=== PATIENT | male | born 1945 | race African-American/Black ===

== ENCOUNTER → 2017-08-22 | Outpatient (CLI) | payer MEDICARE, OTHER | END | disposition home or self-care (01) | LOC: C/S 16:13 | DX: J40 Bronchitis, not specified as acute or chronic (principal) | CPT/HCPCS: 71250 ==

== ENCOUNTER 2017-09-19 11:59 | Inpatient (IN) | payer MEDICARE, OTHER ==
[2017-09-19] MEDS: IPRATROPIUM (NEB) 0.5 MG/2.5 ML AMP HHN (17:13)
[2017-09-19] MEDS: ALBUTEROL 0.083% (NEB) 2.5 MG/3 ML AMP HHN (17:13)
[2017-09-19 17:30] LABS: ADD MAN DIFF? NO
[2017-09-19 17:32] LABS: ADD UMIC NO; UR ASCORBIC ACID NEGATIVE (NEGATIVE); UR BILIRUBIN (Dip) NEGATIVE (NEGATIVE); UR BLOOD (Dip) NEGATIVE (NEGATIVE); UR CLARITY CLEAR (CLEAR); UR COLOR YELLOW (YELLOW); UR GLUCOSE (Dip) NEGATIVE (NEGATIVE); UR KETONES (Dip) TRACE mg/dL (NEGATIVE); UR LEUKOCYTE ESTERASE (Dip) NEGATIVE Leu/ul (NEGATIVE); UR NITRITE (Dip) NEGATIVE (NEGATIVE); UR SPECIFIC GRAVITY (Dip) 1.012 (1.003-1.030); UR TOTAL PROTEIN (Dip) NEGATIVE (NEGATIVE); UR UROBILINOGEN (Dip) NEGATIVE (NEGATIVE)
[2017-09-19 17:34] LABS: WHITE BLOOD COUNT 14.2 10^3/ul (4.8-10.8)
[2017-09-19 17:34] LABS: BASOPHIL # 0.1 10^3/ul (0.0-0.1); BASOPHILS % 0.4 % (0.0-2.0); EOSINOPHILS % 0.1 % (0.0-7.0); HEMATOCRIT 38.5 % (42.0-52.0); HEMOGLOBIN 13.1 g/dl (14.0-18.0); LYMPHOCYTES # 0.9 10^3/ul (0.8-2.9); LYMPHOCYTES % 6.6 % (15.0-51.0); MEAN CORPUSCULAR HEMOGLOBIN 30.5 pg (29.0-33.0); MEAN CORPUSCULAR VOLUME 89.7 fl (82.0-101.0); MEAN PLATELET VOLUME 8.6 fl (7.4-10.4); MONOCYTE # 0.8 10^3/ul (0.3-0.9); MONOCYTES % 5.4 % (0.0-11.0); NEUTROPHILS % 84.9 % (39.0-77.0); NUCLEATED RED BLOOD CELLS # 0.1 10^3/ul (0.0-0.0); NUCLEATED RED BLOOD CELLS% 0.6 /100WBC (0.0-0.0); PLATELET COUNT 413 10^3/UL (140-415); RED BLOOD COUNT 4.29 10^6/ul (4.70-6.10)
[2017-09-19 17:49] LABS: INR 1.08; PROTIME 14.1 Sec (11.9-14.9); PT RATIO 1.1
[2017-09-19 17:50] LABS: PARTIAL THROMBOPLASTIN TIME 30.4 Sec (25.0-35.0)
[2017-09-19 17:52] LABS: ALANINE AMINOTRANSFERASE 49 IU/L (13-69); ALBUMIN 3.9 g/dl (3.3-4.9); ALKALINE PHOSPHATASE 129 IU/L (42-121); ANION GAP 14 (8-16); ASPARTATE AMINO TRANSFERASE 54 IU/L (15-46); BILIRUBIN,INDIRECT 0.6 mg/dl (0-1.1); BILIRUBIN,TOTAL 0.6 mg/dl (0.2-1.3); BLOOD UREA NITROGEN 13 mg/dl (7-20); CARBON DIOXIDE 24 mmol/L (21-31); CHLORIDE 106 mmol/L (97-110); CREATININE 1.07 mg/dl (0.61-1.24); GLUCOSE 118 mg/dl (70-220); POTASSIUM 4.8 mmol/L (3.5-5.1); SODIUM 139 mmol/L (135-144); TOTAL PROTEIN 7.8 g/dl (6.1-8.1)
[2017-09-19 18:15] LABS: TROPONIN-I < 0.012 ng/ml (0.00-0.12)
[2017-09-19] MEDS: morphine 4 MG/ML VIAL IV (20:00)
[2017-09-19] MEDS ORDERED: ACETAMINOPHEN 325 MG TAB PO ×2 (20:00→21:30)
[2017-09-19] MEDS ORDERED: ONDANSETRON 4 MG INJ IV (20:00)
[2017-09-19] MEDS: LEVOFLOXACIN 750MG/D5W (PMX) 150 ML IVPB (20:01)
[2017-09-19 20:28] LABS: LACTIC ACID 1.9 mmol/L (0.5-2.0)
[2017-09-19] MEDS ORDERED: METHYLPREDNISOLONE 125 MG INJ IV (21:30)
[2017-09-19 22:32] LABS: C-REACTIVE PROTEIN 7.9 mg/dl (0.0-0.9)
[2017-09-19 22:33] LABS: LACTIC ACID 2.9 mmol/L (0.5-2.0)
[2017-09-20] MEDS: SOD CHLORIDE 0.9% 500 ML IV (00:42)
[2017-09-20] MEDS: METHYLPREDNISOLONE 125 MG INJ IV (00:42)
[2017-09-20] MEDS: FLUTICASONE 0.05% 16 GM NAS SPRAY NASAL ×3 (00:42→20:49)
[2017-09-20] MEDS: ALBUTEROL/IPRATROPIUM (NEB) 3 ML AMP HHN ×6 (00:54→20:59)
[2017-09-20] MEDS: morphine 2 MG INJ IV ×2 (01:10→10:02)
[2017-09-20 02:44] LABS: LACTIC ACID 1.3 mmol/L (0.5-2.0)
[2017-09-20] MEDS: PANTOPRAZOLE (EC) 40 MG TAB PO (06:09)
[2017-09-20] MEDS ORDERED: LEVOFLOXACIN 750MG/D5W (PMX) 150 ML IVPB (07:00)
[2017-09-20] MEDS: ASPIRIN (EC) 81 MG TAB PO (09:00)
[2017-09-20 09:02] LABS: ADD MAN DIFF? NO
[2017-09-20 09:08] LABS: WHITE BLOOD COUNT 10.2 10^3/ul (4.8-10.8)
[2017-09-20 09:08] LABS: ABNORMAL IP MESSAGE 1; BASOPHILS % 0.2 % (0.0-2.0); HEMATOCRIT 32.6 % (42.0-52.0); LYMPHOCYTES # 0.5 10^3/ul (0.8-2.9); LYMPHOCYTES % 5.2 % (15.0-51.0); MEAN CORPUSCULAR HEMOGLOBIN 30.6 pg (29.0-33.0); MEAN CORPUSCULAR HGB CONC 33.7 g/dl (32.0-37.0); MEAN CORPUSCULAR VOLUME 90.8 fl (82.0-101.0); MEAN PLATELET VOLUME 8.9 fl (7.4-10.4); MONOCYTE # 0.1 10^3/ul (0.3-0.9); MONOCYTES % 1.3 % (0.0-11.0); NEUTROPHIL # 9.2 10^3/ul (1.6-7.5); NEUTROPHILS % 90.4 % (39.0-77.0); NUCLEATED RED BLOOD CELLS% 0.2 /100WBC (0.0-0.0); PLATELET COUNT 408 10^3/UL (140-415); POSITIVE DIFF @See below; RED BLOOD COUNT 3.59 10^6/ul (4.70-6.10); RED CELL DISTRIBUTION WIDTH 14.8 % (11.5-14.5)
[2017-09-20 09:21] LABS: HEMOGLOBIN A1C 5.8 % (0-5.9)
[2017-09-20 09:23] LABS: LACTIC ACID 1.7 mmol/L (0.5-2.0)
[2017-09-20 09:34] LABS: ALANINE AMINOTRANSFERASE 45 IU/L (13-69); ALBUMIN 2.8 g/dl (3.3-4.9); ALBUMIN/GLOBULIN RATIO 0.82; ALKALINE PHOSPHATASE 86 IU/L (42-121); ANION GAP 13 (8-16); ASPARTATE AMINO TRANSFERASE 39 IU/L (15-46); BILIRUBIN,INDIRECT 0.3 mg/dl (0-1.1); BILIRUBIN,TOTAL 0.3 mg/dl (0.2-1.3); BLOOD UREA NITROGEN 13 mg/dl (7-20); CALCIUM 8.6 mg/dl (8.4-10.2); CARBON DIOXIDE 24 mmol/L (21-31); CHLORIDE 107 mmol/L (97-110); CHOLESTEROL 104 mg/dl (100-200); CREATININE 0.88 mg/dl (0.61-1.24); GLUCOSE 125 mg/dl (70-220); HDL CHOLESTEROL 52 mg/dl (31-75); LDL CHOLESTEROL,CALCULATED 40 mg/dl; MAGNESIUM 2.2 mg/dl (1.7-2.5); POTASSIUM 5.6 mmol/L (3.5-5.1); SODIUM 138 mmol/L (135-144); TOTAL PROTEIN 6.2 g/dl (6.1-8.1); TRIGLYCERIDES 58 mg/dl (0-149)
[2017-09-20] MEDS: predniSONE 20 MG TAB PO (09:46)
[2017-09-20] MEDS: CLOPIDOGREL 75 MG TAB PO (09:46)
[2017-09-20] MEDS: LORAZEPAM 2 MG INJ IV (09:46)
[2017-09-20] MEDS: RANOLAZINE (SR) 500 MG TAB PO ×2 (09:46→20:50)
[2017-09-20] MEDS: FINASTERIDE 5 MG TAB PO (09:46)
[2017-09-20] MEDS: ISOSORBIDE MONONITRATE(SR)60 MG TAB PO (09:47)
[2017-09-20] MEDS: BACLOFEN 10 MG TAB PO ×2 (09:47→20:49)
[2017-09-20] MEDS: TIOTROPIUM 18 MCG CAPSULE INHA DEV INH (09:48)
[2017-09-20] MEDS: HYDROCODONE/APAP (10/325) TAB PO ×3 (10:00→22:00)
[2017-09-20 10:04] LABS: THYROID STIMULATING HORMONE 0.439 MIU/L (0.465-4.680)
[2017-09-20] MEDS: SALMETEROL/FLUTICASONE 250/50 INHA INH ×2 (12:01→20:49)
[2017-09-20] MEDS: METHYLPREDNISOLONE 40 MG INJ IV ×2 (12:01→17:23)
[2017-09-20] MEDS: TAMSULOSIN (SR) 0.4 MG CAP PO (12:02)
[2017-09-20] MEDS: SENNA/DOCUSATE NA (8.6MG/50MG) TAB PO ×2 (12:02→20:50)
[2017-09-20] MEDS: POLYETHYLENE GLYCOL 17 GM PACKET PO (12:02)
[2017-09-20] MEDS: NA POLYST SULFON 15 GM/60 ML BTL PO (12:04)
[2017-09-20] MEDS: OXYCODONE/ACETAMINOPHEN (5/325) TAB PO ×2 (13:55→21:08)
[2017-09-20] MEDS: morphine LIQ (10 MG/5 ML) CUP PO ×2 (17:22→21:56)
[2017-09-20] MEDS: SOD CHLORIDE 0.9% 100 ML ×2 (18:01→18:02)
[2017-09-20] MEDS: IOHEXOL 100 ML (18:01)
[2017-09-20] MEDS: IOHEXOL 350MG/ML 50 ML BTL (18:02)
[2017-09-20] MEDS: GABAPENTIN 100 MG CAP PO (20:49)
[2017-09-20] MEDS: ATORVASTATIN 40 MG TAB PO (20:49)
[2017-09-20] MEDS: LEVOFLOXACIN 750MG/D5W (PMX) 150 ML IVPB (20:49)
[2017-09-20] MEDS: ENOXAPARIN 100 MG/ML SYG SC (20:57)
[2017-09-20] MEDS ORDERED: TAMSULOSIN (SR) 0.4 MG CAP PO (21:00)
[2017-09-20] MEDS ORDERED: HEPARIN 1000 UNITS/ML 10 ML INJ IV ×2 (22:30)
[2017-09-20 22:46] LABS: ADD MAN DIFF? NO
[2017-09-20 22:49] LABS: WHITE BLOOD COUNT 10.8 10^3/ul (4.8-10.8)
[2017-09-20 22:49] LABS: BASOPHILS % 0.2 % (0.0-2.0); HEMOGLOBIN 11.2 g/dl (14.0-18.0); LYMPHOCYTES # 0.7 10^3/ul (0.8-2.9); LYMPHOCYTES % 6.8 % (15.0-51.0); MEAN CORPUSCULAR HEMOGLOBIN 30.6 pg (29.0-33.0); MEAN CORPUSCULAR HGB CONC 33.9 g/dl (32.0-37.0); MEAN CORPUSCULAR VOLUME 90.2 fl (82.0-101.0); MEAN PLATELET VOLUME 8.7 fl (7.4-10.4); MONOCYTE # 0.3 10^3/ul (0.3-0.9); MONOCYTES % 3.1 % (0.0-11.0); NEUTROPHIL # 9.5 10^3/ul (1.6-7.5); NEUTROPHILS % 87.7 % (39.0-77.0); NUCLEATED RED BLOOD CELLS% 0.4 /100WBC (0.0-0.0); PLATELET COUNT 410 10^3/UL (140-415); RED BLOOD COUNT 3.66 10^6/ul (4.70-6.10)
[2017-09-20 23:06] LABS: INR 1.11; PROTIME 14.5 Sec (11.9-14.9); PT RATIO 1.1
[2017-09-20 23:07] LABS: PARTIAL THROMBOPLASTIN TIME 41.4 Sec (25.0-35.0)
[2017-09-21] MEDS: METHYLPREDNISOLONE 40 MG INJ IV ×4 (01:06→17:32)
[2017-09-21] MEDS: OXYCODONE/ACETAMINOPHEN (5/325) TAB PO ×3 (02:06→13:06)
[2017-09-21] MEDS: HEPARIN 1000 UNITS/ML 10 ML INJ IV (02:21)
[2017-09-21] MEDS: HEPARIN 25000 UNITS/250 ML 250 ML IV ×3 (02:25→11:18)
[2017-09-21] MEDS: ALBUTEROL/IPRATROPIUM (NEB) 3 ML AMP HHN ×6 (02:32→20:15)
[2017-09-21] MEDS: NACL 0.9% 3 ML SYG IV (02:47)
[2017-09-21] MEDS: HYDROCODONE/APAP (10/325) TAB PO ×4 (03:56→22:58)
[2017-09-21] MEDS: PANTOPRAZOLE (EC) 40 MG TAB PO (06:10)
[2017-09-21] MEDS: morphine LIQ (10 MG/5 ML) CUP PO ×2 (08:01→15:38)
[2017-09-21] MEDS: FLUTICASONE 0.05% 16 GM NAS SPRAY NASAL ×2 (08:27→21:08)
[2017-09-21] MEDS: SALMETEROL/FLUTICASONE 250/50 INHA INH ×2 (08:27→21:14)
[2017-09-21] MEDS: SENNA/DOCUSATE NA (8.6MG/50MG) TAB PO ×2 (08:28→21:13)
[2017-09-21] MEDS: POLYETHYLENE GLYCOL 17 GM PACKET PO (08:28)
[2017-09-21] MEDS: BACLOFEN 10 MG TAB PO ×2 (08:28→21:09)
[2017-09-21] MEDS: TIOTROPIUM 18 MCG CAPSULE INHA DEV INH (08:28)
[2017-09-21] MEDS: CLOPIDOGREL 75 MG TAB PO (08:29)
[2017-09-21] MEDS: RANOLAZINE (SR) 500 MG TAB PO ×2 (08:29→21:13)
[2017-09-21] MEDS: ISOSORBIDE MONONITRATE(SR)60 MG TAB PO (08:29)
[2017-09-21] MEDS: FINASTERIDE 5 MG TAB PO (08:29)
[2017-09-21 08:45] LABS: ADD MAN DIFF? NO
[2017-09-21 08:49] LABS: BASOPHILS % 0.2 % (0.0-2.0); HEMATOCRIT 33.3 % (42.0-52.0); HEMOGLOBIN 11.5 g/dl (14.0-18.0); LYMPHOCYTES # 1.2 10^3/ul (0.8-2.9); LYMPHOCYTES % 7.1 % (15.0-51.0); MEAN CORPUSCULAR HEMOGLOBIN 31.3 pg (29.0-33.0); MEAN CORPUSCULAR HGB CONC 34.5 g/dl (32.0-37.0); MEAN CORPUSCULAR VOLUME 90.7 fl (82.0-101.0); MEAN PLATELET VOLUME 8.5 fl (7.4-10.4); MONOCYTE # 0.9 10^3/ul (0.3-0.9); MONOCYTES % 5.2 % (0.0-11.0); NEUTROPHIL # 14.3 10^3/ul (1.6-7.5); NUCLEATED RED BLOOD CELLS # 0.1 10^3/ul (0.0-0.0); NUCLEATED RED BLOOD CELLS% 0.4 /100WBC (0.0-0.0); PLATELET COUNT 435 10^3/UL (140-415); RED BLOOD COUNT 3.67 10^6/ul (4.70-6.10); RED CELL DISTRIBUTION WIDTH 14.8 % (11.5-14.5)
[2017-09-21 08:49] LABS: WHITE BLOOD COUNT 16.8 10^3/ul (4.8-10.8)
[2017-09-21] MEDS ORDERED: TAMSULOSIN (SR) 0.4 MG CAP PO (09:00)
[2017-09-21 09:09] LABS: ALBUMIN 3.2 g/dl (3.3-4.9); ANION GAP 12 (8-16); BLOOD UREA NITROGEN 12 mg/dl (7-20); CALCIUM 9.2 mg/dl (8.4-10.2); CARBON DIOXIDE 26 mmol/L (21-31); CHLORIDE 106 mmol/L (97-110); CREATININE 0.91 mg/dl (0.61-1.24); GLUCOSE 118 mg/dl (70-220); MAGNESIUM 2.2 mg/dl (1.7-2.5); PHOSPHORUS 3.3 mg/dl (2.5-4.9); POTASSIUM 4.1 mmol/L (3.5-5.1); SODIUM 140 mmol/L (135-144)
[2017-09-21 10:07] LABS: PARTIAL THROMBOPLASTIN TIME 148.1 Sec (25.0-35.0)
[2017-09-21] MEDS ORDERED: VANCOMYCIN 750 MG in DEXTROSE 5% 150 ML IVPB (13:30)
[2017-09-21] MEDS ORDERED: VANCOMYCIN IV PER PHARMACY XX (13:30)
[2017-09-21] MEDS: PIPER-TAZO 3.375 GM IV (PMX) 100 ML IVPB ×2 (14:23→21:14)
[2017-09-21] MEDS: VANCOMYCIN 1.5 GM in SOD CHLORIDE 0.9% 250 ML IVPB (15:32)
[2017-09-21 16:12] LABS: PARTIAL THROMBOPLASTIN TIME 71.7 Sec (25.0-35.0)
[2017-09-21] MEDS: LEVOFLOXACIN 750MG/D5W (PMX) 150 ML IVPB (19:57)
[2017-09-21] MEDS: ATORVASTATIN 40 MG TAB PO (21:09)
[2017-09-21] MEDS: GABAPENTIN 100 MG CAP PO (21:09)
[2017-09-21] MEDS: TAMSULOSIN (SR) 0.4 MG CAP PO (21:13)
[2017-09-21 21:32] LABS: PARTIAL THROMBOPLASTIN TIME 66.4 Sec (25.0-35.0)
[2017-09-22] MEDS: METHYLPREDNISOLONE 40 MG INJ IV ×2 (00:08→06:22)
[2017-09-22] MEDS: ZOLPIDEM 5 MG TAB PO ×2 (00:11→22:28)
[2017-09-22] MEDS: ALBUTEROL/IPRATROPIUM (NEB) 3 ML AMP HHN ×6 (01:51→20:15)
[2017-09-22] MEDS: HEPARIN 25000 UNITS/250 ML 250 ML IV (02:28)
[2017-09-22] MEDS: HYDROCODONE/APAP (10/325) TAB PO ×4 (04:00→22:00)
[2017-09-22] MEDS: OXYCODONE/ACETAMINOPHEN (5/325) TAB PO ×3 (05:01→19:35)
[2017-09-22] MEDS: VANCOMYCIN 750 MG in DEXTROSE 5% 150 ML IVPB ×2 (05:03→16:24)
[2017-09-22 05:37] LABS: ADD MAN DIFF? NO
[2017-09-22 05:46] LABS: WHITE BLOOD COUNT 15.1 10^3/ul (4.8-10.8)
[2017-09-22 05:46] LABS: BASOPHILS % 0.2 % (0.0-2.0); HEMATOCRIT 30.9 % (42.0-52.0); HEMOGLOBIN 10.5 g/dl (14.0-18.0); LYMPHOCYTES # 0.8 10^3/ul (0.8-2.9); LYMPHOCYTES % 5.6 % (15.0-51.0); MEAN CORPUSCULAR HEMOGLOBIN 30.9 pg (29.0-33.0); MEAN CORPUSCULAR VOLUME 90.9 fl (82.0-101.0); MEAN PLATELET VOLUME 8.8 fl (7.4-10.4); MONOCYTE # 0.5 10^3/ul (0.3-0.9); MONOCYTES % 3.2 % (0.0-11.0); NEUTROPHIL # 13.4 10^3/ul (1.6-7.5); NEUTROPHILS % 88.2 % (39.0-77.0); NUCLEATED RED BLOOD CELLS% 0.3 /100WBC (0.0-0.0); PLATELET COUNT 443 10^3/UL (140-415); RED CELL DISTRIBUTION WIDTH 14.9 % (11.5-14.5)
[2017-09-22 06:12] LABS: ALBUMIN 2.8 g/dl (3.3-4.9); ANION GAP 10 (8-16); BLOOD UREA NITROGEN 14 mg/dl (7-20); CARBON DIOXIDE 27 mmol/L (21-31); CHLORIDE 106 mmol/L (97-110); CREATININE 0.88 mg/dl (0.61-1.24); GLUCOSE 123 mg/dl (70-220); MAGNESIUM 2.1 mg/dl (1.7-2.5); PHOSPHORUS 3.2 mg/dl (2.5-4.9); POTASSIUM 4.6 mmol/L (3.5-5.1); SODIUM 138 mmol/L (135-144)
[2017-09-22] MEDS: PIPER-TAZO 3.375 GM IV (PMX) 100 ML IVPB ×3 (06:22→21:14)
[2017-09-22] MEDS: PANTOPRAZOLE (EC) 40 MG TAB PO (06:24)
[2017-09-22 06:50] LABS: PARTIAL THROMBOPLASTIN TIME 80.4 Sec (25.0-35.0)
[2017-09-22] MEDS: SALMETEROL/FLUTICASONE 250/50 INHA INH ×2 (09:28→21:15)
[2017-09-22] MEDS: RANOLAZINE (SR) 500 MG TAB PO ×2 (09:29→22:28)
[2017-09-22] MEDS: ISOSORBIDE MONONITRATE(SR)60 MG TAB PO (09:29)
[2017-09-22] MEDS: SENNA/DOCUSATE NA (8.6MG/50MG) TAB PO ×2 (09:29→21:13)
[2017-09-22] MEDS: CLOPIDOGREL 75 MG TAB PO (09:29)
[2017-09-22] MEDS: POLYETHYLENE GLYCOL 17 GM PACKET PO (09:29)
[2017-09-22] MEDS: BACLOFEN 10 MG TAB PO ×2 (09:29→21:13)
[2017-09-22] MEDS: FLUTICASONE 0.05% 16 GM NAS SPRAY NASAL ×2 (09:29→21:14)
[2017-09-22] MEDS: FINASTERIDE 5 MG TAB PO (09:30)
[2017-09-22] MEDS: TIOTROPIUM 18 MCG CAPSULE INHA DEV INH (09:37)
[2017-09-22 13:42] LABS: PARTIAL THROMBOPLASTIN TIME 61.7 Sec (25.0-35.0)
[2017-09-22] MEDS: LEVOFLOXACIN 750MG/D5W (PMX) 150 ML IVPB (19:36)
[2017-09-22] MEDS: LORAZEPAM 1 MG TAB PO (20:31)
[2017-09-22 20:45] LABS: PARTIAL THROMBOPLASTIN TIME 86.7 Sec (25.0-35.0)
[2017-09-22] MEDS: ATORVASTATIN 40 MG TAB PO (21:13)
[2017-09-22] MEDS: TAMSULOSIN (SR) 0.4 MG CAP PO (21:13)
[2017-09-22] MEDS: GABAPENTIN 100 MG CAP PO (21:13)
[2017-09-22] MEDS: LIDOCAINE 5% 35 GM OINT TOP (21:15)
[2017-09-23] MEDS: ALBUTEROL/IPRATROPIUM (NEB) 3 ML AMP HHN ×6 (00:16→21:22)
[2017-09-23] MEDS: OXYCODONE/ACETAMINOPHEN (5/325) TAB PO (02:37)
[2017-09-23] MEDS: HEPARIN 25000 UNITS/250 ML 250 ML IV (02:39)
[2017-09-23 03:23] LABS: ADD MAN DIFF? NO
[2017-09-23 03:25] LABS: WHITE BLOOD COUNT 14.9 10^3/ul (4.8-10.8)
[2017-09-23 03:25] LABS: BASOPHIL # 0.1 10^3/ul (0.0-0.1); BASOPHILS % 0.3 % (0.0-2.0); EOSINOPHILS % 0.1 % (0.0-7.0); HEMATOCRIT 31.8 % (42.0-52.0); LYMPHOCYTES # 1.6 10^3/ul (0.8-2.9); LYMPHOCYTES % 10.7 % (15.0-51.0); MEAN CORPUSCULAR HEMOGLOBIN 31.2 pg (29.0-33.0); MEAN CORPUSCULAR HGB CONC 34.6 g/dl (32.0-37.0); MEAN CORPUSCULAR VOLUME 90.1 fl (82.0-101.0); MEAN PLATELET VOLUME 8.5 fl (7.4-10.4); MONOCYTE # 1.3 10^3/ul (0.3-0.9); MONOCYTES % 8.7 % (0.0-11.0); NEUTROPHIL # 11.2 10^3/ul (1.6-7.5); NEUTROPHILS % 75.7 % (39.0-77.0); NUCLEATED RED BLOOD CELLS # 0.1 10^3/ul (0.0-0.0); NUCLEATED RED BLOOD CELLS% 0.9 /100WBC (0.0-0.0); PLATELET COUNT 419 10^3/UL (140-415); RED BLOOD COUNT 3.53 10^6/ul (4.70-6.10); RED CELL DISTRIBUTION WIDTH 15.1 % (11.5-14.5)
[2017-09-23 03:53] LABS: PARTIAL THROMBOPLASTIN TIME 88.4 Sec (25.0-35.0)
[2017-09-23 03:55] LABS: ALBUMIN 2.7 g/dl (3.3-4.9); ANION GAP 8 (8-16); BLOOD UREA NITROGEN 17 mg/dl (7-20); CALCIUM 8.7 mg/dl (8.4-10.2); CARBON DIOXIDE 27 mmol/L (21-31); CHLORIDE 108 mmol/L (97-110); CREATININE 0.92 mg/dl (0.61-1.24); GLUCOSE 115 mg/dl (70-220); MAGNESIUM 1.9 mg/dl (1.7-2.5); PHOSPHORUS 2.7 mg/dl (2.5-4.9); POTASSIUM 3.9 mmol/L (3.5-5.1); SODIUM 139 mmol/L (135-144)
[2017-09-23 04:36] LABS: VANCOMYCIN,TROUGH 14.1 ug/ml (10.0-20.0)
[2017-09-23] MEDS: VANCOMYCIN 750 MG in DEXTROSE 5% 150 ML IVPB ×2 (04:54→15:57)
[2017-09-23] MEDS: HYDROCODONE/APAP (10/325) TAB PO ×4 (05:17→22:12)
[2017-09-23] MEDS: PIPER-TAZO 3.375 GM IV (PMX) 100 ML IVPB ×3 (05:20→22:12)
[2017-09-23] MEDS: PANTOPRAZOLE (EC) 40 MG TAB PO (05:21)
[2017-09-23] MEDS: POLYETHYLENE GLYCOL 17 GM PACKET PO (08:18)
[2017-09-23] MEDS: BACLOFEN 10 MG TAB PO ×2 (08:18→20:41)
[2017-09-23] MEDS: RANOLAZINE (SR) 500 MG TAB PO ×2 (08:19→20:41)
[2017-09-23] MEDS: FINASTERIDE 5 MG TAB PO (08:19)
[2017-09-23] MEDS: CLOPIDOGREL 75 MG TAB PO (08:20)
[2017-09-23] MEDS: ISOSORBIDE MONONITRATE(SR)60 MG TAB PO (08:20)
[2017-09-23] MEDS: SENNA/DOCUSATE NA (8.6MG/50MG) TAB PO ×2 (08:20→20:42)
[2017-09-23] MEDS: TIOTROPIUM 18 MCG CAPSULE INHA DEV INH (08:20)
[2017-09-23] MEDS: SALMETEROL/FLUTICASONE 250/50 INHA INH ×2 (08:23→20:40)
[2017-09-23] MEDS: FLUTICASONE 0.05% 16 GM NAS SPRAY NASAL ×2 (08:23→20:42)
[2017-09-23] MEDS: morphine LIQ (10 MG/5 ML) CUP PO (17:36)
[2017-09-23] MEDS: BISACODYL (EC) 5 MG TAB PO (18:40)
[2017-09-23] MEDS: LEVOFLOXACIN 750MG/D5W (PMX) 150 ML IVPB (20:40)
[2017-09-23] MEDS: ATORVASTATIN 40 MG TAB PO (20:41)
[2017-09-23] MEDS: GABAPENTIN 100 MG CAP PO (20:41)
[2017-09-23] MEDS: TAMSULOSIN (SR) 0.4 MG CAP PO (20:48)
[2017-09-24] MEDS: ALBUTEROL/IPRATROPIUM (NEB) 3 ML AMP HHN ×6 (00:47→20:36)
[2017-09-24] MEDS: HEPARIN 25000 UNITS/250 ML 250 ML IV ×2 (03:01→11:15)
[2017-09-24] MEDS: VANCOMYCIN 750 MG in DEXTROSE 5% 150 ML IVPB ×2 (04:17→16:33)
[2017-09-24] MEDS: HYDROCODONE/APAP (10/325) TAB PO ×4 (04:17→21:54)
[2017-09-24] MEDS: PANTOPRAZOLE (EC) 40 MG TAB PO (05:38)
[2017-09-24] MEDS: PIPER-TAZO 3.375 GM IV (PMX) 100 ML IVPB ×3 (05:38→21:54)
[2017-09-24 08:31] LABS: ADD MAN DIFF? NO
[2017-09-24] MEDS: RANOLAZINE (SR) 500 MG TAB PO ×2 (08:34→21:40)
[2017-09-24] MEDS: SALMETEROL/FLUTICASONE 250/50 INHA INH ×2 (08:34→21:39)
[2017-09-24] MEDS: FLUTICASONE 0.05% 16 GM NAS SPRAY NASAL ×2 (08:34→21:40)
[2017-09-24] MEDS: TIOTROPIUM 18 MCG CAPSULE INHA DEV INH (08:34)
[2017-09-24] MEDS: SENNA/DOCUSATE NA (8.6MG/50MG) TAB PO ×2 (08:35→21:41)
[2017-09-24] MEDS: CLOPIDOGREL 75 MG TAB PO (08:35)
[2017-09-24] MEDS: BACLOFEN 10 MG TAB PO ×2 (08:35→21:41)
[2017-09-24] MEDS: ISOSORBIDE MONONITRATE(SR)60 MG TAB PO (08:35)
[2017-09-24] MEDS: POLYETHYLENE GLYCOL 17 GM PACKET PO (08:35)
[2017-09-24] MEDS: FINASTERIDE 5 MG TAB PO (08:35)
[2017-09-24 08:37] LABS: ABNORMAL IP MESSAGE 1; BASOPHIL # 0.1 10^3/ul (0.0-0.1); BASOPHILS % 0.9 % (0.0-2.0); EOSINOPHILS # 0.3 10^3/ul (0.0-0.5); EOSINOPHILS % 2.1 % (0.0-7.0); HEMATOCRIT 35.8 % (42.0-52.0); HEMOGLOBIN 12.3 g/dl (14.0-18.0); LYMPHOCYTES # 1.2 10^3/ul (0.8-2.9); MEAN CORPUSCULAR HEMOGLOBIN 30.9 pg (29.0-33.0); MEAN CORPUSCULAR HGB CONC 34.4 g/dl (32.0-37.0); MEAN CORPUSCULAR VOLUME 89.9 fl (82.0-101.0); MEAN PLATELET VOLUME 8.5 fl (7.4-10.4); MONOCYTE # 1.4 10^3/ul (0.3-0.9); MONOCYTES % 10.6 % (0.0-11.0); NEUTROPHIL # 9.3 10^3/ul (1.6-7.5); NEUTROPHILS % 69.4 % (39.0-77.0); NUCLEATED RED BLOOD CELLS # 0.1 10^3/ul (0.0-0.0); NUCLEATED RED BLOOD CELLS% 0.7 /100WBC (0.0-0.0); PLATELET COUNT 452 10^3/UL (140-415); POSITIVE DIFF @See below; RED BLOOD COUNT 3.98 10^6/ul (4.70-6.10); RED CELL DISTRIBUTION WIDTH 14.8 % (11.5-14.5)
[2017-09-24 08:37] LABS: WHITE BLOOD COUNT 13.5 10^3/ul (4.8-10.8)
[2017-09-24] MEDS: OXYCODONE/ACETAMINOPHEN (5/325) TAB PO (08:50)
[2017-09-24 08:54] LABS: ALBUMIN 3.3 g/dl (3.3-4.9); ANION GAP 12 (8-16); BLOOD UREA NITROGEN 11 mg/dl (7-20); CALCIUM 8.8 mg/dl (8.4-10.2); CARBON DIOXIDE 27 mmol/L (21-31); CHLORIDE 101 mmol/L (97-110); CREATININE 0.98 mg/dl (0.61-1.24); GLUCOSE 92 mg/dl (70-220); MAGNESIUM 1.9 mg/dl (1.7-2.5); PHOSPHORUS 3.4 mg/dl (2.5-4.9); POTASSIUM 4.2 mmol/L (3.5-5.1); SODIUM 136 mmol/L (135-144)
[2017-09-24 09:46] LABS: PARTIAL THROMBOPLASTIN TIME 127.6 Sec (25.0-35.0)
[2017-09-24] MEDS: ONDANSETRON 4 MG TAB PO (13:32)
[2017-09-24] MEDS: MECLIZINE 12.5 MG TAB PO (16:29)
[2017-09-24 18:44] LABS: PARTIAL THROMBOPLASTIN TIME 93.3 Sec (25.0-35.0)
[2017-09-24] MEDS: LEVOFLOXACIN 750MG/D5W (PMX) 150 ML IVPB (21:39)
[2017-09-24] MEDS: GABAPENTIN 100 MG CAP PO (21:40)
[2017-09-24] MEDS: ATORVASTATIN 40 MG TAB PO (21:40)
[2017-09-24] MEDS: TAMSULOSIN (SR) 0.4 MG CAP PO (21:41)
[2017-09-25] MEDS: ALBUTEROL/IPRATROPIUM (NEB) 3 ML AMP HHN ×6 (01:05→21:24)
[2017-09-25 01:18] LABS: PARTIAL THROMBOPLASTIN TIME 117.8 Sec (25.0-35.0)
[2017-09-25] MEDS: HEPARIN 25000 UNITS/250 ML 250 ML IV ×2 (02:09→06:40)
[2017-09-25] MEDS: HYDROCODONE/APAP (10/325) TAB PO ×4 (04:00→22:11)
[2017-09-25] MEDS: VANCOMYCIN 750 MG in DEXTROSE 5% 150 ML IVPB ×2 (04:06→15:46)
[2017-09-25] MEDS: PANTOPRAZOLE (EC) 40 MG TAB PO (05:13)
[2017-09-25] MEDS: PIPER-TAZO 3.375 GM IV (PMX) 100 ML IVPB ×3 (05:13→22:11)
[2017-09-25 08:29] LABS: ADD MAN DIFF? NO
[2017-09-25 08:35] LABS: WHITE BLOOD COUNT 11.8 10^3/ul (4.8-10.8)
[2017-09-25 08:35] LABS: ABNORMAL IP MESSAGE 1; BASOPHIL # 0.1 10^3/ul (0.0-0.1); BASOPHILS % 0.7 % (0.0-2.0); EOSINOPHILS # 0.3 10^3/ul (0.0-0.5); EOSINOPHILS % 2.1 % (0.0-7.0); HEMATOCRIT 33.2 % (42.0-52.0); HEMOGLOBIN 11.3 g/dl (14.0-18.0); LYMPHOCYTES # 1.2 10^3/ul (0.8-2.9); LYMPHOCYTES % 10.1 % (15.0-51.0); MEAN CORPUSCULAR HEMOGLOBIN 30.6 pg (29.0-33.0); MEAN PLATELET VOLUME 8.6 fl (7.4-10.4); MONOCYTE # 1.5 10^3/ul (0.3-0.9); MONOCYTES % 12.7 % (0.0-11.0); NEUTROPHILS % 68.2 % (39.0-77.0); NUCLEATED RED BLOOD CELLS% 0.3 /100WBC (0.0-0.0); PLATELET COUNT 418 10^3/UL (140-415); POSITIVE DIFF @See below; RED BLOOD COUNT 3.69 10^6/ul (4.70-6.10); RED CELL DISTRIBUTION WIDTH 14.8 % (11.5-14.5)
[2017-09-25 08:51] LABS: ANION GAP 12 (8-16); BLOOD UREA NITROGEN 10 mg/dl (7-20); CALCIUM 8.9 mg/dl (8.4-10.2); CARBON DIOXIDE 27 mmol/L (21-31); CHLORIDE 101 mmol/L (97-110); CREATININE 1.05 mg/dl (0.61-1.24); GLUCOSE 99 mg/dl (70-220); POTASSIUM 4.5 mmol/L (3.5-5.1); SODIUM 135 mmol/L (135-144)
[2017-09-25] MEDS: POLYETHYLENE GLYCOL 17 GM PACKET PO (08:55)
[2017-09-25] MEDS: SALMETEROL/FLUTICASONE 250/50 INHA INH ×2 (08:56→20:37)
[2017-09-25] MEDS: TIOTROPIUM 18 MCG CAPSULE INHA DEV INH (08:56)
[2017-09-25] MEDS: RANOLAZINE (SR) 500 MG TAB PO ×2 (08:57→20:36)
[2017-09-25] MEDS: SENNA/DOCUSATE NA (8.6MG/50MG) TAB PO ×2 (08:57→20:36)
[2017-09-25] MEDS: BACLOFEN 10 MG TAB PO ×2 (08:57→20:38)
[2017-09-25] MEDS: FINASTERIDE 5 MG TAB PO (08:57)
[2017-09-25] MEDS: FLUTICASONE 0.05% 16 GM NAS SPRAY NASAL ×2 (08:57→20:37)
[2017-09-25] MEDS: ISOSORBIDE MONONITRATE(SR)60 MG TAB PO (08:57)
[2017-09-25] MEDS: TAMSULOSIN (SR) 0.4 MG CAP PO ×2 (08:58→20:37)
[2017-09-25 09:35] LABS: PARTIAL THROMBOPLASTIN TIME 97.7 Sec (25.0-35.0)
[2017-09-25] MEDS: APIXABAN 5 MG TABLET PO (11:15)
[2017-09-25 14:56] LABS: URIC ACID 2.7 mg/dl (3.1-7.9)
[2017-09-25 14:56] LABS: LACTATE DEHYDROGENASE 671 IU/L (313-618)
[2017-09-25] MEDS: RIVAROXABAN 15 MG TABLET PO (17:27)
[2017-09-25] MEDS: GABAPENTIN 100 MG CAP PO (20:36)
[2017-09-25] MEDS: ATORVASTATIN 40 MG TAB PO (20:36)
[2017-09-26] MEDS: ALBUTEROL/IPRATROPIUM (NEB) 3 ML AMP HHN ×6 (00:54→21:56)
[2017-09-26] MEDS: VANCOMYCIN 750 MG in DEXTROSE 5% 150 ML IVPB ×2 (03:10→16:48)
[2017-09-26] MEDS: PANTOPRAZOLE (EC) 40 MG TAB PO (05:34)
[2017-09-26] MEDS: HYDROCODONE/APAP (10/325) TAB PO ×2 (05:35→09:46)
[2017-09-26] MEDS: PIPER-TAZO 3.375 GM IV (PMX) 100 ML IVPB ×3 (05:36→21:09)
[2017-09-26] MEDS: RIVAROXABAN 15 MG TABLET PO ×2 (09:46→17:37)
[2017-09-26] MEDS: POLYETHYLENE GLYCOL 17 GM PACKET PO (09:47)
[2017-09-26] MEDS: RANOLAZINE (SR) 500 MG TAB PO ×2 (09:47→21:15)
[2017-09-26] MEDS: BACLOFEN 10 MG TAB PO ×2 (09:48→21:15)
[2017-09-26] MEDS: FLUCONAZOLE 100 MG TAB PO (09:48)
[2017-09-26] MEDS: ISOSORBIDE MONONITRATE(SR)60 MG TAB PO (09:49)
[2017-09-26] MEDS: TAMSULOSIN (SR) 0.4 MG CAP PO ×2 (09:49→21:15)
[2017-09-26] MEDS: SENNA/DOCUSATE NA (8.6MG/50MG) TAB PO ×2 (09:49→21:15)
[2017-09-26] MEDS: FINASTERIDE 5 MG TAB PO (09:49)
[2017-09-26] MEDS: FLUTICASONE 0.05% 16 GM NAS SPRAY NASAL ×2 (09:50→21:10)
[2017-09-26] MEDS: SALMETEROL/FLUTICASONE 250/50 INHA INH ×2 (09:50→21:10)
[2017-09-26] MEDS: TIOTROPIUM 18 MCG CAPSULE INHA DEV INH (09:51)
[2017-09-26 10:00] LABS: ADD MAN DIFF? NO
[2017-09-26 10:02] LABS: WHITE BLOOD COUNT 11.5 10^3/ul (4.8-10.8)
[2017-09-26 10:02] LABS: ABNORMAL IP MESSAGE 1; BASOPHIL # 0.1 10^3/ul (0.0-0.1); BASOPHILS % 0.5 % (0.0-2.0); EOSINOPHILS # 0.3 10^3/ul (0.0-0.5); EOSINOPHILS % 2.3 % (0.0-7.0); HEMATOCRIT 36.2 % (42.0-52.0); HEMOGLOBIN 12.4 g/dl (14.0-18.0); LYMPHOCYTES # 1.4 10^3/ul (0.8-2.9); LYMPHOCYTES % 12.1 % (15.0-51.0); MEAN CORPUSCULAR HEMOGLOBIN 30.8 pg (29.0-33.0); MEAN CORPUSCULAR HGB CONC 34.3 g/dl (32.0-37.0); MEAN PLATELET VOLUME 8.9 fl (7.4-10.4); MONOCYTE # 1.6 10^3/ul (0.3-0.9); MONOCYTES % 14.2 % (0.0-11.0); NEUTROPHIL # 7.7 10^3/ul (1.6-7.5); NEUTROPHILS % 67.2 % (39.0-77.0); PLATELET COUNT 406 10^3/UL (140-415); POSITIVE DIFF @See below; RED BLOOD COUNT 4.02 10^6/ul (4.70-6.10); RED CELL DISTRIBUTION WIDTH 15.5 % (11.5-14.5)
[2017-09-26 10:32] LABS: ANION GAP 12 (8-16); BLOOD UREA NITROGEN 9 mg/dl (7-20); CALCIUM 9.1 mg/dl (8.4-10.2); CARBON DIOXIDE 26 mmol/L (21-31); CHLORIDE 104 mmol/L (97-110); CREATININE 1.03 mg/dl (0.61-1.24); GLUCOSE 96 mg/dl (70-220); MAGNESIUM 2.1 mg/dl (1.7-2.5); PHOSPHORUS 2.5 mg/dl (2.5-4.9); POTASSIUM 4.4 mmol/L (3.5-5.1); SODIUM 138 mmol/L (135-144)
[2017-09-26] MEDS: LORAZEPAM 1 MG TAB PO (13:29)
[2017-09-26] MEDS: DOCUSATE SODIUM 100 MG CAP PO (13:39)
[2017-09-26] MEDS: BISACODYL (EC) 5 MG TAB PO (13:39)
[2017-09-26] MEDS ORDERED: NA PHOSPHATE/BIPHOS 133 ML ENEMA PR (14:00)
[2017-09-26] MEDS: GABAPENTIN 100 MG CAP PO (21:15)
[2017-09-26] MEDS: ATORVASTATIN 40 MG TAB PO (21:15)
[2017-09-27] MEDS: ALBUTEROL/IPRATROPIUM (NEB) 3 ML AMP HHN ×6 (01:29→21:56)
[2017-09-27 03:30] LABS: ADD MAN DIFF? NO
[2017-09-27 03:32] LABS: WHITE BLOOD COUNT 9.6 10^3/ul (4.8-10.8)
[2017-09-27 03:32] LABS: BASOPHILS % 0.4 % (0.0-2.0); EOSINOPHILS # 0.2 10^3/ul (0.0-0.5); EOSINOPHILS % 1.7 % (0.0-7.0); HEMATOCRIT 29.6 % (42.0-52.0); HEMOGLOBIN 10.4 g/dl (14.0-18.0); LYMPHOCYTES % 10.1 % (15.0-51.0); MEAN CORPUSCULAR HEMOGLOBIN 31.4 pg (29.0-33.0); MEAN CORPUSCULAR HGB CONC 35.1 g/dl (32.0-37.0); MEAN CORPUSCULAR VOLUME 89.4 fl (82.0-101.0); MEAN PLATELET VOLUME 8.7 fl (7.4-10.4); MONOCYTE # 1.3 10^3/ul (0.3-0.9); MONOCYTES % 13.6 % (0.0-11.0); NEUTROPHIL # 6.8 10^3/ul (1.6-7.5); NEUTROPHILS % 71.2 % (39.0-77.0); PLATELET COUNT 351 10^3/UL (140-415); RED BLOOD COUNT 3.31 10^6/ul (4.70-6.10); RED CELL DISTRIBUTION WIDTH 15.2 % (11.5-14.5)
[2017-09-27 04:13] LABS: ALBUMIN 2.9 g/dl (3.3-4.9); ANION GAP 10 (8-16); BLOOD UREA NITROGEN 8 mg/dl (7-20); CALCIUM 8.6 mg/dl (8.4-10.2); CARBON DIOXIDE 27 mmol/L (21-31); CHLORIDE 106 mmol/L (97-110); CREATININE 0.93 mg/dl (0.61-1.24); GLUCOSE 101 mg/dl (70-220); PHOSPHORUS 2.2 mg/dl (2.5-4.9); POTASSIUM 4.1 mmol/L (3.5-5.1); SODIUM 139 mmol/L (135-144)
[2017-09-27] MEDS: PIPER-TAZO 3.375 GM IV (PMX) 100 ML IVPB (05:18)
[2017-09-27 05:21] LABS: VANCOMYCIN,TROUGH 13.7 ug/ml (10.0-20.0)
[2017-09-27] MEDS: PANTOPRAZOLE (EC) 40 MG TAB PO (05:23)
[2017-09-27] MEDS: VANCOMYCIN 750 MG in DEXTROSE 5% 150 ML IVPB ×2 (06:22→16:49)
[2017-09-27] MEDS: RANOLAZINE (SR) 500 MG TAB PO ×2 (09:40→21:53)
[2017-09-27] MEDS: POLYETHYLENE GLYCOL 17 GM PACKET PO (09:40)
[2017-09-27] MEDS: SENNA/DOCUSATE NA (8.6MG/50MG) TAB PO ×2 (09:41→21:53)
[2017-09-27] MEDS: BISACODYL (EC) 5 MG TAB PO (09:41)
[2017-09-27] MEDS: RIVAROXABAN 15 MG TABLET PO ×2 (09:41→17:36)
[2017-09-27] MEDS: FINASTERIDE 5 MG TAB PO (09:41)
[2017-09-27] MEDS: ISOSORBIDE MONONITRATE(SR)60 MG TAB PO (09:42)
[2017-09-27] MEDS: BACLOFEN 10 MG TAB PO ×2 (09:42→21:53)
[2017-09-27] MEDS: FLUCONAZOLE 100 MG TAB PO (09:42)
[2017-09-27] MEDS: TAMSULOSIN (SR) 0.4 MG CAP PO ×2 (09:42→21:53)
[2017-09-27] MEDS: SALMETEROL/FLUTICASONE 250/50 INHA INH ×2 (09:43→21:52)
[2017-09-27] MEDS: FLUTICASONE 0.05% 16 GM NAS SPRAY NASAL ×2 (09:44→21:53)
[2017-09-27] MEDS: TIOTROPIUM 18 MCG CAPSULE INHA DEV INH (09:44)
[2017-09-27] MEDS: NEOMYC/POLYMYX/BACIT 30 GM OINT TOP (12:53)
[2017-09-27] MEDS: GUAIFENESIN/CODEINE 5ML CUP PO (18:23)
[2017-09-27] MEDS: CEFEPIME 1GM/50 ML (PMX) 50 ML IVPB (21:53)
[2017-09-27] MEDS: L ACIDOPHIL/B LACTIS/B LONGUM CAPSULE PO (21:53)
[2017-09-27] MEDS: GABAPENTIN 100 MG CAP PO (21:53)
[2017-09-27] MEDS: ATORVASTATIN 40 MG TAB PO (21:54)
[2017-09-28] MEDS: ALBUTEROL/IPRATROPIUM (NEB) 3 ML AMP HHN ×6 (01:06→19:55)
[2017-09-28] MEDS: ZOLPIDEM 5 MG TAB PO (01:41)
[2017-09-28] MEDS: VANCOMYCIN 750 MG in DEXTROSE 5% 150 ML IVPB ×2 (05:40→16:21)
[2017-09-28] MEDS: PANTOPRAZOLE (EC) 40 MG TAB PO (05:40)
[2017-09-28] MEDS: FLUTICASONE 0.05% 16 GM NAS SPRAY NASAL ×2 (09:12→21:20)
[2017-09-28] MEDS: POLYETHYLENE GLYCOL 17 GM PACKET PO (09:12)
[2017-09-28] MEDS: RANOLAZINE (SR) 500 MG TAB PO ×2 (09:13→21:21)
[2017-09-28] MEDS: TAMSULOSIN (SR) 0.4 MG CAP PO ×2 (09:13→21:21)
[2017-09-28] MEDS: BACLOFEN 10 MG TAB PO ×2 (09:13→21:21)
[2017-09-28] MEDS: TIOTROPIUM 18 MCG CAPSULE INHA DEV INH (09:14)
[2017-09-28] MEDS: FLUCONAZOLE 100 MG TAB PO (09:14)
[2017-09-28] MEDS: SENNA/DOCUSATE NA (8.6MG/50MG) TAB PO ×2 (09:14→21:21)
[2017-09-28] MEDS: SALMETEROL/FLUTICASONE 250/50 INHA INH ×2 (09:14→21:20)
[2017-09-28] MEDS: L ACIDOPHIL/B LACTIS/B LONGUM CAPSULE PO ×2 (09:14→21:21)
[2017-09-28] MEDS: FINASTERIDE 5 MG TAB PO (09:14)
[2017-09-28] MEDS: ISOSORBIDE MONONITRATE(SR)60 MG TAB PO (09:14)
[2017-09-28] MEDS: RIVAROXABAN 15 MG TABLET PO ×2 (09:16→17:23)
[2017-09-28] MEDS: CEFEPIME 1GM/50 ML (PMX) 50 ML IVPB ×2 (09:16→21:25)
[2017-09-28] MEDS: ATORVASTATIN 40 MG TAB PO (21:21)
[2017-09-28] MEDS: GABAPENTIN 100 MG CAP PO (21:21)
[2017-09-29] MEDS: ZOLPIDEM 5 MG TAB PO ×2 (01:04→23:07)
[2017-09-29] MEDS: ALBUTEROL/IPRATROPIUM (NEB) 3 ML AMP HHN ×6 (01:10→21:00)
[2017-09-29] MEDS: VANCOMYCIN 750 MG in DEXTROSE 5% 150 ML IVPB ×2 (04:57→15:50)
[2017-09-29] MEDS: PANTOPRAZOLE (EC) 40 MG TAB PO (05:05)
[2017-09-29] MEDS: SALMETEROL/FLUTICASONE 250/50 INHA INH ×2 (08:26→21:33)
[2017-09-29] MEDS: ISOSORBIDE MONONITRATE(SR)60 MG TAB PO (08:27)
[2017-09-29] MEDS: L ACIDOPHIL/B LACTIS/B LONGUM CAPSULE PO ×2 (08:27→21:33)
[2017-09-29] MEDS: FLUTICASONE 0.05% 16 GM NAS SPRAY NASAL ×2 (08:27→21:33)
[2017-09-29] MEDS: TAMSULOSIN (SR) 0.4 MG CAP PO ×2 (08:27→21:33)
[2017-09-29] MEDS: FLUCONAZOLE 100 MG TAB PO (08:27)
[2017-09-29] MEDS: POLYETHYLENE GLYCOL 17 GM PACKET PO (08:28)
[2017-09-29] MEDS: BACLOFEN 10 MG TAB PO ×2 (08:28→21:33)
[2017-09-29] MEDS: FINASTERIDE 5 MG TAB PO (08:28)
[2017-09-29] MEDS: SENNA/DOCUSATE NA (8.6MG/50MG) TAB PO ×2 (08:28→21:00)
[2017-09-29] MEDS: LIDOCAINE 5% 35 GM OINT TOP ×2 (08:33→23:09)
[2017-09-29] MEDS: RIVAROXABAN 15 MG TABLET PO ×2 (09:58→19:43)
[2017-09-29] MEDS: RANOLAZINE (SR) 500 MG TAB PO ×2 (09:59→21:32)
[2017-09-29] MEDS: TIOTROPIUM 18 MCG CAPSULE INHA DEV INH (09:59)
[2017-09-29] MEDS: CEFEPIME 1GM/50 ML (PMX) 50 ML IVPB ×2 (09:59→21:30)
[2017-09-29] MEDS: NEOMYC/POLYMYX/BACIT 30 GM OINT TOP ×2 (14:33→21:33)
[2017-09-29] MEDS: ATORVASTATIN 40 MG TAB PO (21:33)
[2017-09-29] MEDS: GABAPENTIN 100 MG CAP PO (21:34)
[2017-09-29] MEDS: GUAIFENESIN/CODEINE 5ML CUP PO (23:06)
[2017-09-30] MEDS: ALBUTEROL/IPRATROPIUM (NEB) 3 ML AMP HHN ×5 (00:54→17:15)
[2017-09-30] MEDS: VANCOMYCIN 750 MG in DEXTROSE 5% 150 ML IVPB ×2 (04:31→16:31)
[2017-09-30] MEDS: PANTOPRAZOLE (EC) 40 MG TAB PO (06:09)
[2017-09-30 07:06] LABS: BLOOD UREA NITROGEN 8 mg/dl (7-20)
[2017-09-30 07:06] LABS: CREATININE 0.95 mg/dl (0.61-1.24)
[2017-09-30] MEDS: SALMETEROL/FLUTICASONE 250/50 INHA INH (10:04)
[2017-09-30] MEDS: TIOTROPIUM 18 MCG CAPSULE INHA DEV INH (10:04)
[2017-09-30] MEDS: CEFEPIME 1GM/50 ML (PMX) 50 ML IVPB (10:05)
[2017-09-30] MEDS: FLUTICASONE 0.05% 16 GM NAS SPRAY NASAL (10:05)
[2017-09-30] MEDS: FINASTERIDE 5 MG TAB PO (10:05)
[2017-09-30] MEDS: FLUCONAZOLE 100 MG TAB PO (10:05)
[2017-09-30] MEDS: POLYETHYLENE GLYCOL 17 GM PACKET PO (10:05)
[2017-09-30] MEDS: BACLOFEN 10 MG TAB PO (10:05)
[2017-09-30] MEDS: TAMSULOSIN (SR) 0.4 MG CAP PO (10:06)
[2017-09-30] MEDS: L ACIDOPHIL/B LACTIS/B LONGUM CAPSULE PO (10:06)
[2017-09-30] MEDS: ISOSORBIDE MONONITRATE(SR)60 MG TAB PO (10:06)
[2017-09-30] MEDS: NEOMYC/POLYMYX/BACIT 30 GM OINT TOP (10:07)
[2017-09-30] MEDS: SENNA/DOCUSATE NA (8.6MG/50MG) TAB PO (10:07)
[2017-09-30] MEDS: RIVAROXABAN 15 MG TABLET PO ×2 (10:35→19:01)
[2017-09-30] MEDS: RANOLAZINE (SR) 500 MG TAB PO (10:35)
[2017-09-30] MEDS: LIDOCAINE 1% (MPF) 5 ML VIAL SC (12:10)
[2017-09-30] MEDS: SOD CHLORIDE 0.9% 100 ML (12:25)
[2017-09-30] MEDS: HYDROCODONE/APAP (10/325) TAB PO (13:50)
== END 2017-09-30 19:42 | DRG 871 ==
LOC: ICU 09-21 01:35 → PP2 09-28 23:57 → MS4 09-23 16:27 → E/R 11:59 → MS4 21:36
PROC: 02HV33Z Insertion of Infusion Device into Superior Vena Cava, Percutaneous Approach (ICD-10-PCS; principal; 2017-09-30)
DX: A41.9 Sepsis, unspecified organism (principal); I26.99 Other pulmonary embolism without acute cor pulmonale; J96.01 Acute respiratory failure with hypoxia; J18.0 Bronchopneumonia, unspecified organism; E87.5 Hyperkalemia; I67.2 Cerebral atherosclerosis; I31.3 Pericardial effusion (noninflammatory); J44.0 Chronic obstructive pulmonary disease with (acute) lower respiratory infection; J44.1 Chronic obstructive pulmonary disease with (acute) exacerbation; J43.2 Centrilobular emphysema; D64.9 Anemia, unspecified; J20.9 Acute bronchitis, unspecified; I25.10 Atherosclerotic heart disease of native coronary artery without angina pectoris; N40.0 Benign prostatic hyperplasia without lower urinary tract symptoms; J42 Unspecified chronic bronchitis; I73.9 Peripheral vascular disease, unspecified; K21.9 Gastro-esophageal reflux disease without esophagitis; M50.30 Other cervical disc degeneration, unspecified cervical region; M47.892 Other spondylosis, cervical region; R91.8 Other nonspecific abnormal finding of lung field; R65.20 Severe sepsis without septic shock; R33.9 Retention of urine, unspecified; Z96.612 Presence of left artificial shoulder joint; I25.2 Old myocardial infarction; Z87.891 Personal history of nicotine dependence; Z79.02 Long term (current) use of antithrombotics/antiplatelets
CPT/HCPCS: 36415; 36569; 70450; 71045; 71250; 71275; 76937; 80048; 80053; 80061; 80069; 80202; 81003; 81240; 81270; 82565; 83036; 83605; 83615; 83735; 83890; 84100; 84443; 84484; 84520; 84560; 85025; 85300; 85302; 85305; 85610; 85613; 85730; 86140; 86147; 86635; 87040; 87070; 87081; 87086; 87116; 93005; 93306; 93970; 94640; 94644; 94664; 96374; 96375; 97110; 97116; 97162; 97167; 97530; 99285-25

== ENCOUNTER 2019-02-17 11:22 | Observation (INO) | payer MEDICARE, OTHER ==
[2019-02-17 12:54] LABS: ADD MAN DIFF? NO
[2019-02-17 12:57] LABS: BASOPHILS % 0.8 % (0.0-2.0); EOSINOPHILS # 0.1 10^3/ul (0.0-0.5); HEMOGLOBIN 11.8 g/dl (14.0-18.0); LYMPHOCYTES # 1.2 10^3/ul (0.8-2.9); LYMPHOCYTES % 24.4 % (15.0-51.0); MEAN CORPUSCULAR HEMOGLOBIN 25.4 pg (29.0-33.0); MEAN CORPUSCULAR HGB CONC 32.8 g/dl (32.0-37.0); MEAN CORPUSCULAR VOLUME 77.6 fl (82.0-101.0); MEAN PLATELET VOLUME 9.6 fl (7.4-10.4); MONOCYTE # 0.6 10^3/ul (0.3-0.9); MONOCYTES % 11.2 % (0.0-11.0); NEUTROPHIL # 3.1 10^3/ul (1.6-7.5); NEUTROPHILS % 61.6 % (39.0-77.0); PLATELET COUNT 197 10^3/UL (140-415); RED BLOOD COUNT 4.64 10^6/ul (4.70-6.10); RED CELL DISTRIBUTION WIDTH 15.9 % (11.5-14.5)
[2019-02-17 13:35] LABS: ANION GAP 5 (5-13); BLOOD UREA NITROGEN 14 mg/dl (7-20); CARBON DIOXIDE 28 mmol/L (21-31); CHLORIDE 107 mmol/L (97-110); CREATININE 1.56 mg/dl (0.61-1.24); GLUCOSE 91 mg/dl (70-220); POTASSIUM 4.7 mmol/L (3.5-5.1); SODIUM 140 mmol/L (135-144)
[2019-02-17 13:47] LABS: B-TYPE NATRIURETIC PEPTIDE 93 PG/ML (0-125); TROPONIN-I < 0.012 ng/ml (0.000-0.120)
[2019-02-17] MEDS: SOD CHLORIDE 0.9% 100 ML (14:13)
[2019-02-17] MEDS: IOHEXOL 300MG/ML 150 ML BTL (14:13)
[2019-02-17] MEDS ORDERED: ACETAMINOPHEN 325 MG TAB PO ×2 (16:00→16:30)
[2019-02-17] MEDS ORDERED: ONDANSETRON 4 MG INJ IV ×2 (16:00→16:30)
[2019-02-17] MEDS ORDERED: NACL 0.9% 3 ML SYG IV (16:30)
[2019-02-17] MEDS ORDERED: HYDROCODONE/APAP (5/325) TAB PO (16:30)
[2019-02-17] MEDS ORDERED: ALBUTEROL/IPRATROPIUM (NEB) 3 ML AMP NEB (16:30)
[2019-02-17] MEDS ORDERED: DOCUSATE SODIUM 100 MG CAP PO (16:30)
[2019-02-17] MEDS ORDERED: NITROGLYCERIN (SL) 0.4 MG TAB SL (16:30)
[2019-02-17] MEDS ORDERED: SALINE 0.65% 45 ML NAS SPRAY NASAL (16:30)
[2019-02-17] MEDS ORDERED: LORAZEPAM 1 MG TAB PO (16:30)
[2019-02-17] MEDS ORDERED: MAGNESIUM HYDROXIDE 30ML CUP PO (16:30)
[2019-02-17 18:30] LABS: CREATINE KINASE 98 IU/L (23-200)
[2019-02-17] MEDS: morphine 2 MG INJ IV (18:30)
[2019-02-17] MEDS: SOD CHLORIDE 0.9% 1,000 ML IV (18:30)
[2019-02-17 18:41] LABS: CK-MB 0.97 ng/ml (0.0-2.4); TROPONIN-I < 0.012 ng/ml (0.000-0.120)
[2019-02-17] MEDS ORDERED: RANITIDINE 150 MG TAB PO (21:00)
[2019-02-17] MEDS: AMOXICILLIN 500 MG CAP PO (21:02)
[2019-02-17] MEDS: RANOLAZINE (SR) 500 MG TAB PO (21:02)
[2019-02-17] MEDS: BACLOFEN 10 MG TAB PO (21:03)
[2019-02-17] MEDS: SENNA/DOCUSATE NA (8.6MG/50MG) TAB PO (21:03)
[2019-02-17] MEDS: FLUTICASONE 0.05% 16 GM NAS SPRAY NASAL (21:03)
[2019-02-17] MEDS: ATORVASTATIN 40 MG TAB PO (21:03)
[2019-02-17] MEDS: HYDROCODONE/APAP (10/325) TAB PO (21:03)
[2019-02-17] MEDS: TAMSULOSIN (SR) 0.4 MG CAP PO (21:03)
[2019-02-17] MEDS: ZOLPIDEM 5 MG TAB PO (22:43)
[2019-02-17] MEDS: RIVAROXABAN 20 MG TABLET PO (22:43)
[2019-02-18 01:12] LABS: CREATINE KINASE 86 IU/L (23-200)
[2019-02-18 01:23] LABS: CK INDEX 1.2; CK-MB 0.99 ng/ml (0.0-2.4); TROPONIN-I < 0.012 ng/ml (0.000-0.120)
[2019-02-18 06:19] LABS: ADD MAN DIFF? NO
[2019-02-18 06:21] LABS: BASOPHILS % 0.6 % (0.0-2.0); EOSINOPHILS # 0.1 10^3/ul (0.0-0.5); HEMATOCRIT 33.1 % (42.0-52.0); HEMOGLOBIN 10.9 g/dl (14.0-18.0); LYMPHOCYTES # 1.3 10^3/ul (0.8-2.9); MEAN CORPUSCULAR HEMOGLOBIN 25.3 pg (29.0-33.0); MEAN CORPUSCULAR HGB CONC 32.9 g/dl (32.0-37.0); MEAN PLATELET VOLUME 9.4 fl (7.4-10.4); MONOCYTE # 0.6 10^3/ul (0.3-0.9); MONOCYTES % 11.5 % (0.0-11.0); NEUTROPHILS % 60.1 % (39.0-77.0); PLATELET COUNT 181 10^3/UL (140-415)
[2019-02-18 06:21] LABS: WHITE BLOOD COUNT 5.1 10^3/ul (4.8-10.8)
[2019-02-18 06:39] LABS: CREATINE KINASE 81 IU/L (23-200)
[2019-02-18 06:52] LABS: CK INDEX 1.3; CK-MB 1.04 ng/ml (0.0-2.4); TROPONIN-I < 0.012 ng/ml (0.000-0.120)
[2019-02-18 07:04] LABS: IRON 32 ug/dl (35-150)
[2019-02-18 07:08] LABS: ALANINE AMINOTRANSFERASE 29 IU/L (13-69); ALBUMIN 3.2 g/dl (3.3-4.9); ALBUMIN/GLOBULIN RATIO 1.18; ALKALINE PHOSPHATASE 70 IU/L (42-121); ANION GAP 5 (5-13); ASPARTATE AMINO TRANSFERASE 20 IU/L (15-46); BILIRUBIN,INDIRECT 0.4 mg/dl (0-1.1); BILIRUBIN,TOTAL 0.4 mg/dl (0.2-1.3); BLOOD UREA NITROGEN 14 mg/dl (7-20); CALCIUM 8.6 mg/dl (8.4-10.2); CARBON DIOXIDE 24 mmol/L (21-31); CHLORIDE 110 mmol/L (97-110); CHOL/HDL RATIO 2.1 RATIO; CHOLESTEROL 160 mg/dl (100-200); CREATININE 1.37 mg/dl (0.61-1.24); GLUCOSE 100 mg/dl (70-220); HDL CHOLESTEROL 76 mg/dl (31-75); LDL CHOLESTEROL,CALCULATED 72 mg/dl; POTASSIUM 4.1 mmol/L (3.5-5.1); SODIUM 139 mmol/L (135-144); TOTAL PROTEIN 5.9 g/dl (6.1-8.1); TRIGLYCERIDES 58 mg/dl (0-149)
[2019-02-18 07:16] LABS: % IRON SATURATION 10 % SAT (22-52); TOTAL IRON BINDING CAPACITY 336 ug/dl (241-421)
[2019-02-18 07:17] LABS: B-TYPE NATRIURETIC PEPTIDE 105 PG/ML (0-125)
[2019-02-18 07:25] LABS: FREE T4 (FREE THYROXINE) 1.35 ng/dl (0.78-2.44)
[2019-02-18] MEDS ORDERED: METOPROLOL (XL) 25 MG TAB PO (09:00)
[2019-02-18] MEDS: REGADENOSON 0.4 MG/5 ML SYG (09:10)
[2019-02-18] MEDS: HYDROCODONE/APAP (10/325) TAB PO (11:17)
[2019-02-18] MEDS: SOD CHLORIDE 0.9% 1,000 ML IV (11:17)
[2019-02-18] MEDS: FINASTERIDE 5 MG TAB PO (11:17)
[2019-02-18] MEDS: RANOLAZINE (SR) 500 MG TAB PO (11:18)
[2019-02-18] MEDS: AMOXICILLIN 500 MG CAP PO (11:18)
[2019-02-18] MEDS: CHOLECALCIFEROL 400 UNITS TAB PO (11:18)
[2019-02-18] MEDS: FLUTICASONE 0.05% 16 GM NAS SPRAY NASAL (11:19)
[2019-02-18] MEDS: SENNA/DOCUSATE NA (8.6MG/50MG) TAB PO (11:19)
[2019-02-18] MEDS: TAMSULOSIN (SR) 0.4 MG CAP PO (11:19)
[2019-02-18] MEDS: BACLOFEN 10 MG TAB PO (11:19)
[2019-02-18] MEDS: GABAPENTIN 100 MG CAP PO (11:19)
[2019-02-18] MEDS: TIOTROPIUM 18 MCG CAPSULE INHA DEV INH (11:20)
[2019-02-18] MEDS: FLUTICASONE/VILANTEROL 100-25 INH (11:21)
[2019-02-18] MEDS: METOPROLOL (XL) 25 MG TAB PO (11:23)
[2019-02-18] MEDS: PANTOPRAZOLE (EC) 40 MG TAB PO (11:36)
[2019-02-18 14:05] LABS: ADD UMIC NO; UR ASCORBIC ACID NEGATIVE (NEGATIVE); UR BILIRUBIN (Dip) NEGATIVE (NEGATIVE); UR BLOOD (Dip) NEGATIVE (NEGATIVE); UR CLARITY CLEAR (CLEAR); UR COLOR STRAW (YELLOW); UR GLUCOSE (Dip) NEGATIVE (NEGATIVE); UR KETONES (Dip) NEGATIVE (NEGATIVE); UR LEUKOCYTE ESTERASE (Dip) NEGATIVE Leu/ul (NEGATIVE); UR NITRITE (Dip) NEGATIVE (NEGATIVE); UR SPECIFIC GRAVITY (Dip) 1.009 (1.003-1.030); UR TOTAL PROTEIN (Dip) NEGATIVE (NEGATIVE); UR UROBILINOGEN (Dip) NEGATIVE (NEGATIVE)
== END 2019-02-18 16:00 | disposition home or self-care (01) ==
LOC: E/R 11:22 → TEL 15:53
DX: R07.89 Other chest pain (principal); J01.90 Acute sinusitis, unspecified; E86.0 Dehydration; J44.9 Chronic obstructive pulmonary disease, unspecified; I10 Essential (primary) hypertension; I25.10 Atherosclerotic heart disease of native coronary artery without angina pectoris; Z95.5 Presence of coronary angioplasty implant and graft; E78.5 Hyperlipidemia, unspecified; I73.9 Peripheral vascular disease, unspecified; Z86.711 Personal history of pulmonary embolism; Z79.01 Long term (current) use of anticoagulants; D50.9 Iron deficiency anemia, unspecified
CPT/HCPCS: 36415; 71045; 71275; 78452; 80048; 80053; 80061; 81003; 82550; 82553; 83540; 83880; 84439; 84443; 84484; 85025; 93005; 93017; 97161; 97167; 99285-25; G0378